=== PATIENT | female | born 1990 | race Caucasian/White ===

== ENCOUNTER → 2020-06-12 | Outpatient (CLI) | payer OTHER ==
[2020-06-16 14:09] LABS: HPV 16 Negative (Negative); HPV 18 Negative (Negative); HPV OTHER HR TYPES Negative (Negative)
== END | disposition home or self-care (01) ==
LOC: LAB 18:40 → LAB SHORT 18:40
PROVIDERS: Student in an Organized Health Care Education/Training Program
DX: Z12.4 Encounter for screening for malignant neoplasm of cervix (principal)
CPT/HCPCS: 87624; G0123

== ENCOUNTER → 2022-05-10 | Outpatient (CLI) | payer OTHER ==
[2022-05-11 15:10] LABS: HPV 16 Negative (Negative); HPV 18 Negative (Negative); HPV OTHER HR TYPES Negative (Negative)
== END | disposition home or self-care (01) ==
LOC: LAB 15:20 → LAB SHORT 15:20
PROVIDERS: Student in an Organized Health Care Education/Training Program
DX: Z01.419 Encounter for gynecological examination (general) (routine) without abnormal findings (principal)
CPT/HCPCS: 87624; G0123

== ENCOUNTER → 2023-10-19 | Outpatient (CLI) | payer OTHER ==
[~2023-10-19] MED LIST: ALBU90OI INH; Atarax10 MG PO; BENADRYL25 MG PO; Flonase 0.05% N16 GM
== END ==
LOC: LAB 16:45 → LAB SHORT 16:45
PROVIDERS: Registered Nurse Community Health
DX: N92.0 Excessive and frequent menstruation with regular cycle (principal)
CPT/HCPCS: 83036

== ENCOUNTER → 2024-12-04 | Outpatient (CLI) | payer OTHER ==
[~2024-12-04] MED LIST changes: +LIDOCAINE JELLY TOP; +MINOCYCLINE HC100 M2 PO; +SPIR25 PO
== END | disposition home or self-care (01) ==
LOC: LAB 15:51 → LAB SHORT 15:51
DX: N39.0 Urinary tract infection, site not specified (principal)
CPT/HCPCS: 87077; 87086; 87186

== ENCOUNTER 2025-05-14 11:07 | Day surgery (SDC) | payer OTHER ==
[~2025-05-14] VITALS: Ht 167.6 cm; Wt 90.4 kg
[2025-05-14] MEDS ORDERED: CELE100 PO (11:49)
[2025-05-14] MEDS ORDERED: Cyclobenzaprine5 MG PO (11:49)
[2025-05-14] MEDS ORDERED: ZYRTEC10 M1 PO (11:50)
[2025-05-14] MEDS ORDERED: Tranexamic Acid 100 ML IV ONE (12:05)
[2025-05-14] MEDS ORDERED: EPINEPhrine HCl 1 MG / ML 30ML Vial ONE (14:21)
[2025-05-14] MEDS ORDERED: Lidocaine 2%-Epineph 1:200000 20 ML SDV ONE (14:21)
[2025-05-14] MEDS ORDERED: FentaNYL Citrate 50 MCG/ML 2 ML Injection ONE (14:30)
[2025-05-14] MEDS ORDERED: Phenylephrine HCl 100 MCG/ML-NS 10MLSYR (1MG/10ML) ONE (14:31)
[2025-05-14] MEDS ORDERED: Dexamethasone Sod Phos 10 MG/ML 1ML VIAL ONE (14:31)
[2025-05-14] MEDS ORDERED: Ketorolac Tromethamine 30mg Vial ONE (14:31)
[2025-05-14] MEDS ORDERED: Ondansetron HCl 2 MG / ML 2ML Vial ONE ×2 (14:31→16:19)
--- NOTE | 2025-05-14 14:37 | NUR ---
05/14/25 9702 Concepcion Morrow PT UPDATED WHILE IN PREOP REGARDING THE DELAY. BED ADJUSTED AND BLANKETS PROVIDED FOR COMFORT. AT BEDSIDE WHILE IN PRE OP. CALL LIGHT IN REACH. GIFT CARD GIVEN FOR DELAY COMPENSATION. PT VOICED UNDERSTANDING.
--- NOTE | 2025-05-14 16:05 | NUR ---
05/14/25 9223 JEROME SANCHEZ PT IN AT SIDE OF RECLINER. EATING POPSICLE. DENIES NAUSEA. SMALL PAIN FROM SINUS/ POPSICLE HELPING THROAT PAIN.
[2025-05-14 16:39] VITALS: BP 129/78
== END 2025-05-14 16:57 | disposition home or self-care (01) ==
LOC: ORSCSDS 11:07
PROVIDERS: Otolaryngology
PROC: 09BL0ZZ Excision of Nasal Turbinate, Open Approach (ICD-10-PCS; principal; 2025-05-14 13:00)
PROC: 09BM0ZZ Excision of Nasal Septum, Open Approach (ICD-10-PCS; principal; 2025-05-14 13:00)
DX: J34.2 Deviated nasal septum (principal); J34.3 Hypertrophy of nasal turbinates; J45.909 Unspecified asthma, uncomplicated; E66.9 Obesity, unspecified; Z68.32 Body mass index [BMI] 32.0-32.9, adult
CPT/HCPCS: A9270; J0165; J1100; J1885; J2371; J2405; J2704; J3010; J7120